=== PATIENT | female | born 1940 | race Caucasian/White ===

== ENCOUNTER → 2016-10-13 | Outpatient (CLI) | payer MEDICARE ==
[~2016-10-13] MED LIST: ACETAMINOPHEN OR; CLARITIN 10MG T10 MG PO; CODEINE OR; IBUPROFEN800 MG PO
== END ==
LOC: RT 15:10
DX: R00.0 Tachycardia, unspecified (principal); I25.10 Atherosclerotic heart disease of native coronary artery without angina pectoris

== ENCOUNTER → 2016-12-01 | Outpatient (CLI) | payer MEDICARE ==
[2016-12-01 19:05] LABS: BUN 19 mg/dL (7-18)
[2016-12-01 19:40] LABS: GFR (ESTIMATED) 44 ML/MIN (59-)
== END ==
LOC: LAB 15:56
PROVIDERS: Internal Medicine Cardiovascular Disease
DX: I50.42 Chronic combined systolic (congestive) and diastolic (congestive) heart failure (principal); I25.5 Ischemic cardiomyopathy; I25.10 Atherosclerotic heart disease of native coronary artery without angina pectoris

== ENCOUNTER → 2016-12-22 | Outpatient (CLI) | payer MEDICARE ==
[2016-12-22 18:44] LABS: BUN 14 mg/dL (7-18)
[2016-12-22 18:45] LABS: GFR (ESTIMATED) 48 ML/MIN (59-)
== END ==
LOC: LAB 14:57
PROVIDERS: Internal Medicine Cardiovascular Disease
DX: I50.42 Chronic combined systolic (congestive) and diastolic (congestive) heart failure (principal); I25.5 Ischemic cardiomyopathy; I25.10 Atherosclerotic heart disease of native coronary artery without angina pectoris

== ENCOUNTER → 2017-01-19 | Outpatient (CLI) | payer MEDICARE ==
[2017-01-19 20:03] LABS: BUN 16 mg/dL (7-18)
[2017-01-19 20:09] LABS: GFR (ESTIMATED) 44 ML/MIN (59-)
== END ==
LOC: LAB 16:12
PROVIDERS: Internal Medicine Cardiovascular Disease
DX: I50.42 Chronic combined systolic (congestive) and diastolic (congestive) heart failure (principal); I25.5 Ischemic cardiomyopathy; I25.10 Atherosclerotic heart disease of native coronary artery without angina pectoris

== ENCOUNTER → 2017-02-11 | Outpatient (CLI) | payer MEDICARE ==
[2017-02-11 16:13] LABS: BUN 19 mg/dL (7-18)
[2017-02-11 16:14] LABS: GFR (ESTIMATED) 44 ML/MIN (59-)
== END ==
LOC: LAB 13:19
PROVIDERS: Internal Medicine Cardiovascular Disease
DX: I50.42 Chronic combined systolic (congestive) and diastolic (congestive) heart failure (principal); I25.5 Ischemic cardiomyopathy; I25.10 Atherosclerotic heart disease of native coronary artery without angina pectoris